=== PATIENT | female | born 1990 | race Hispanic/Latino ===

== ENCOUNTER 2016-10-12 12:37 | Outpatient (CLI) | payer BC ==
[2016-10-12 13:25] LABS: Mean Corpuscular HGB Conc 33 % (30-34); Mean Corpuscular Hemoglobin 30 pg (28-32); Mean Corpuscular Volume 91 fl (79-97); Platelet Count 283 K/mm3 (140-440); Red Blood Count 4.74 M/mm3 (3.65-5.03); Red Cell Distribution Width 13.9 % (13.2-15.2); White Blood Count 4.5 K/mm3 (4.5-11.0)
[2016-10-12 13:40] LABS: Alanine Aminotransferase 54 units/L (7-56); Albumin 4.2 g/dL (3.9-5); Albumin/Globulin Ratio 1.4 %; Alkaline Phosphatase 64 units/L (35-129); Anion Gap 20 mmol/L; Blood Urea Nitrogen 10 mg/dL (7-17); Calcium 9.2 mg/dL (8.4-10.2); Carbon Dioxide 22 mmol/L (22-30); Chloride 101.1 mmol/L (98-107); Glucose 88 mg/dL (65-100); Sodium 139 mmol/L (137-145); Total Protein 7.1 g/dL (6.3-8.2)
[2016-10-12 15:11] LABS: Basophils % (Manual) 0 % (0.0-1.8); Blastocytes % (Manual) 0 %
[2016-10-12 15:12] LABS: Diff Status Complete; Platelet Estimate Consistent w Auto
[2016-10-14 06:54] LABS: Vitamin D, 25-OH, Total 15 ng/mL (30-100)
== END 2016-10-12 12:38 | disposition home or self-care (01) ==
LOC: LAB 12:37
PROVIDERS: ATTEND Psychiatry & Neurology Psychiatry
DX: E13.8 Other specified diabetes mellitus with unspecified complications (principal); F33.1 Major depressive disorder, recurrent, moderate; R79.9 Abnormal finding of blood chemistry, unspecified
CPT/HCPCS: 36415; 80053; 82306; 82747; 83036; 84425; 84443; 85007; 85025